=== PATIENT | male | born 1970 | race Caucasian/White ===

== ENCOUNTER 2021-01-14 14:40 | Emergency (ER) | payer MEDICAID ==
[2021-01-14 14:56] VITALS: BP 149/97
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
[2021-01-14] MEDS ORDERED: MAG HYDROX/AL HYDROX/SIMETH 30 ML UDC PO STA (15:23)
[2021-01-14 15:38] LABS: BASOPHILS % (AUTO) 0.5 %; EOSINOPHILS # (AUTO) 0.3 10^3/uL (0.0-0.7); EOSINOPHILS % (AUTO) 4.1 %; HCT - HEMATOCRIT 44.7 % (42.0-52.0); HGB - HEMOGLOBIN 14.9 g/dL (14.0-18.0); LYMPHOCYTES # (AUTO) 1.4 10^3/uL (1.5-3.5); LYMPHOCYTES % (AUTO) 22.1 %; MEAN CORPUSCULAR HGB CONC 33.3 g/dL (32.0-36.0); MEAN CORPUSCULAR VOLUME 93.1 fL (80.0-94.0); MEAN PLATELET VOLUME 8.2 fL (7.4-11.4); MONOCYTES # (AUTO) 0.6 10^3/uL (0.0-1.0); MONOCYTES % (AUTO) 8.9 %; NEUTROPHILS # (AUTO) 4.1 10^3/uL (1.5-6.6); NEUTROPHILS % (AUTO) 64.1 %; PLT - PLATELET COUNT 247 10^3/uL (130-450); RED CELL DISTRIBUTION WIDTH 13.7 % (12.0-15.0); WHITE BLOOD COUNT 6.4 x10^3/uL (4.8-10.8)
[2021-01-14 15:57] LABS: ACETAMINOPHEN < 10 ug/mL (10-30); ALBUMIN 4.2 g/dL (3.2-5.5); ALBUMIN/GLOBULIN RATIO 1.3 (1.0-2.2); ALKALINE PHOSPHATASE 45 IU/L (42-121); ALT ALANINE AMINOTRANSFERASE 22 IU/L (10-60); AST ASPARTATE AMINOTRANSFERASE 19 IU/L (10-42); BILIRUBIN,TOTAL 0.8 mg/dL (0.2-1.0); BUN - BLOOD UREA NITROGEN 12 mg/dL (6-20); CALCIUM 9.2 mg/dL (8.5-10.3); CARBON DIOXIDE - CO2 26 mmol/L (21-32); CHLORIDE 103 mmol/L (101-111); CREATININE 0.8 mg/dL (0.6-1.2); ETOH - ETHANOL < 5.0 mg/dL; GFR - MDRD 103 (>89); GLUCOSE 115 mg/dL (70-100); LIPASE 27 U/L (22-51); POTASSIUM 4.1 mmol/L (3.5-5.0); SALICYLATE < 6.0 mg/dL; SODIUM 137 mmol/L (135-145); TOTAL PROTEIN 7.5 g/dL (6.7-8.2)
[2021-01-14 16:06] LABS: MUDS CUTOFF CONCENTRATIONS CUTOFF CONC BELOW:
[2021-01-14 16:10] LABS: BILIRUBIN,URINE NEGATIVE (NEGATIVE); GLUCOSE, URINE (UA) NEGATIVE (NEGATIVE); KETONES,URINE (UA) NEGATIVE (NEGATIVE); LEUKOCYTE ESTERASE, URINE NEGATIVE (NEGATIVE); NITRITE,URINE NEGATIVE (NEGATIVE); OCCULT BLOOD,URINE NEGATIVE (NEGATIVE); PH,URINE 6.5 PH (5.0-7.5); PROTEIN,URINE NEGATIVE (NEGATIVE); UROBILINOGEN,URINE 0.2 (NORMAL) E.U./dL (NORMAL)
[2021-01-14 16:22] LABS: AMPHETAMINE SCREEN,URINE NEGATIVE (NEGATIVE); BARBITURATE SCREEN,UR NEGATIVE (NEGATIVE); BENZODIAZEPINES SCREEN, URINE NEGATIVE (NEGATIVE); CLARITY,URINE CLEAR (CLEAR); COCAINE SCREEN URINE NEGATIVE (NEGATIVE); METHADONE SCREEN, URINE NEGATIVE (NEGATIVE); METHAMPHETAMINES SCREEN, URINE NEGATIVE (NEGATIVE); OPIATE SCREEN, URINE NEGATIVE (NEGATIVE); OXYCODONE SCREEN, URINE NEGATIVE (NEGATIVE); PROPOXYPHENE SCREEN, URINE NEGATIVE (NEGATIVE); THC CANNABINOID SCREEN, URINE POSITIVE (NEGATIVE); TRICYCLIC ANTIDEPRESSANT,URINE NEGATIVE (NEGATIVE)
[2021-01-14 17:22] LABS: B. PARAPERTUSSIS- RESP PCR PAN NOT DETECTED; B. PERTUSSIS- RESP PCR PANEL NOT DETECTED; C. PNEUMONIAE- RESP PCR PANEL NOT DETECTED; CORONAVIRUS 229E-RESP PCR NOT DETECTED; CORONAVIRUS HKU1-RESP PCR NOT DETECTED; CORONAVIRUS NL63-RESP PCR NOT DETECTED; CORONAVIRUS OC43-RESP PCR NOT DETECTED; HUMAN METAPNEUMOVIRUS NOT DETECTED; INFLUENZA A- RESP PCR PANEL NOT DETECTED; INFLUENZA B - RESP PCR PANEL NOT DETECTED; M. PNEUMONIAE- RESP PCR PANEL NOT DETECTED; PARAINFLUENZA VIRUS 1 NOT DETECTED; PARAINFLUENZA VIRUS 2 NOT DETECTED; PARAINFLUENZA VIRUS 3 NOT DETECTED; PARAINFLUENZA VIRUS 4 NOT DETECTED; RHINOVIRUS/ENTEROVIRUS DETECTED; RSV- RESP PCR PANEL NOT DETECTED; SARS-CoV-2 -RESP PCR PANEL NOT DETECTED
== END 2021-01-14 17:05 | disposition home or self-care (01) ==
LOC: ED 14:40
DX: F22 Delusional disorders (principal); F15.90 Other stimulant use, unspecified, uncomplicated; Z20.822 Contact with and (suspected) exposure to COVID-19
CPT/HCPCS: 0202U; 36415; 80053; 80306; 80307; 80320; 80329; 81003; 82175; 83655; 83690; 83825; 84443; 85025; 99282; 99283; A9270; 81001; 87086

== ENCOUNTER 2021-07-24 02:27 | Emergency (ER) | payer MEDICAID ==
[2021-07-24] MEDS ORDERED: ASPIRIN 325 MG TABLET PO STA (02:49)
[2021-07-24 02:57] LABS: BASOPHILS % (AUTO) 0.5 %; EOSINOPHILS # (AUTO) 0.2 10^3/uL (0.0-0.7); EOSINOPHILS % (AUTO) 3.8 %; HCT - HEMATOCRIT 38.6 % (42.0-52.0); HGB - HEMOGLOBIN 12.6 g/dL (14.0-18.0); LYMPHOCYTES # (AUTO) 1.8 10^3/uL (1.5-3.5); LYMPHOCYTES % (AUTO) 31.4 %; MEAN CORPUSCULAR HEMOGLOBIN 30.6 pg (27.0-31.0); MEAN CORPUSCULAR HGB CONC 32.6 g/dL (32.0-36.0); MEAN CORPUSCULAR VOLUME 93.7 fL (80.0-94.0); MEAN PLATELET VOLUME 8.4 fL (7.4-11.4); MONOCYTES # (AUTO) 0.5 10^3/uL (0.0-1.0); MONOCYTES % (AUTO) 8.1 %; NEUTROPHILS # (AUTO) 3.2 10^3/uL (1.5-6.6); PLT - PLATELET COUNT 221 10^3/uL (130-450); RED BLOOD COUNT 4.12 10^6/uL (4.70-6.10); RED CELL DISTRIBUTION WIDTH 13.8 % (12.0-15.0); WHITE BLOOD COUNT 5.8 x10^3/uL (4.8-10.8)
--- NOTE | 2021-07-24 03:04 | ED Physician Documentation ---
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 denies soa, cough, cp with exertion, fever, leg swelling or back pain. currently pain is 1/10. Review of Systems Ten Systems: 10 systems reviewed and negative Constitutional: denies: Fever, Chills Cardiac: reports: Chest pain / pressure, Palpitations Respiratory: denies: Dyspnea GI: denies: Nausea PD PAST MEDICAL HISTORY - Past Medical History Cardiovascular: None Respiratory: None Neuro: None Endocrine/Autoimmune: None Psych: None (he denies history of bipolar nor schizoaffective disorder. ) - Past Surgical History Past Surgical History: Yes Ortho: Knee replacement, Other - Present Medications Home Medications: Ambulatory Orders Medication Instructions Recorded Confirmed OLANZapine [Zyprexa] 5 mg PO BID PRN #10 tablet 01/14/21 - Allergies Allergies/Adverse Reactions: Allergies Allergy/AdvReac Type Severity Reaction Status Date / Time No Known Drug Allergies Allergy Verified 07/24/21 02:46 - Social History Does the pt smoke?: No Smoking Status: Current every day smoker Does the pt drink ETOH?: No Does the pt have substance abuse?: Yes PD ED PE NORMAL - Vitals Vital signs reviewed: Yes - General General: Alert and oriented X 3, No acute distress, Well developed/nourished - HEENT HEENT: Atraumatic, PERRL, EOMI - Neck Neck: Supple, no meningeal sign - Cardiac Cardiac: RRR, No murmur - Respiratory Respiratory: No respiratory distress, Clear bilaterally - Abdomen Abdomen: Non tender, Non distended - Back Back: No CVA TTP - Derm Derm: Normal color, Warm and dry - Extremities Extremities: No deformity - Neuro Neuro: Alert and oriented X 3 - Psych Psych: Normal mood, Normal affect Results - Vitals Vitals: Vital Signs - 24 hr 07/24/21 07/24/21 07/24/21 02:35 02:49 05:20 Temperature 36.9 C 36.6 C Heart Rate 90 89 84 Respiratory 18 18 15 Rate Blood Pressure 127/89 H 127/89 H 146/93 H O2 Saturation 98 100 100 Oxygen O2 Source Room air - EKG (time done) 0235 Rate: Rate (enter#) (82) Rhythm: NSR [place]: Normal Intervals: Normal ND, Other (QRS 103) Ischemia: Other (JOSH in V1 and V2 without reciprocal changes. likely c/w LVH) 0331 Rate: Rate (enter#) (72) Rhythm: NSR [place]: Normal Intervals: Normal ND, Other (qrs 103) Ischemia: Other (persistent high voltage in anteroseptal precordials with some JOSH without reciprocal changes.) 0511 Rate: Rate (enter#) (70) Rhythm: NSR [place]: Normal Intervals: Normal ND, Other (qrs 105) Ischemia: Other (unchanged from prior two ekgs. precordial leads with high voltage R waves in anteroseptal leads and JOSH without reciprocal changes. ) - Labs Labs: Laboratory Tests 07/24/21 07/24/21 07/24/21 02:49 02:49 02:49 WBC 5.8 RBC 4.12 L Hgb 12.6 L Hct 38.6 L MCV 93.7 MCH 30.6 MCHC 32.6 RDW 13.8 Plt Count 221 MPV 8.4 Neut # (Auto) 3.2 Lymph # (Auto) 1.8 [place] # (Auto) 0.5 Eos # (Auto) 0.2 Baso # (Auto) 0.0 Absolute Nucleated RBC 0.00 Nucleated RBC % 0.0 Sodium 137 Potassium 3.4 L Chloride 101 Carbon Dioxide 26 Anion Gap 10.0 BUN 15 Creatinine 0.7 Estimated GFR (MDRD) 120 Glucose 121 H Calcium 9.3 Total Bilirubin 0.9 AST 24 ALT 21 Alkaline Phosphatase 43 Troponin I High Sens 20.2 H* Total Protein 7.4 Albumin 4.3 Globulin 3.1 Albumin/Globulin Ratio 1.4 Lipase 30 07/24/21 04:36 WBC RBC Hgb Hct MCV MCH MCHC RDW Plt Count MPV Neut # (Auto) Lymph # (Auto) [place] # (Auto) Eos # (Auto) Baso # (Auto) Absolute Nucleated RBC Nucleated RBC % Sodium Potassium Chloride Carbon Dioxide Anion Gap BUN Creatinine Estimated GFR (MDRD) Glucose Calcium Total Bilirubin AST ALT Alkaline Phosphatase Troponin I High Sens 22.6 H* Total Protein Albumin Globulin Albumin/Globulin Ratio Lipase PD MEDICAL DECISION MAKING - ED course ED course: 3am - d/w Dr. Castanon and had him review ekg. he says no clear ischemic changes/ no STEMI on EKG, likely LVH pattern, but we have no prior ekgs. need to check troponin, monitor. He recommends transfer for IR if clinical suspicion is high. Given patient is asymptomatic at present we will not activate labor arbitrator hearing office/STEMI for now, will continue to monitor and f/u labs. High sensitivity trop 20. patient still asymptomatic. aspirin administered. will check repeat trop, reevaluate. 3:30am- patient with 3/10 pain shooting down L arm. repeat ekg completed without clear JOSH/reciprocal changes. call placed to [place] [facility] for concern of possible ischemic changes on EKG. will obtain 2nd trop. d/w Dr. Castanon regarding 2nd ekg. he agrees there is JOSH in v1, v2, without reciprocal ST depression. does not meet criteria for stemi. 4am d/w Dr. Cross, [facility] who reviewed the two ekgs. high voltage and j point elevation in precordials. st changes in inferolateral leads are mild, unimpressive. low concern for ACS. reasonable plan to monitor, repeat troponin. 5am - patient asymptomatic in ED, with third EKG unchanged. repeat troponin stable. Shared decision made with patient to discharge home with strict return precautions. patient plans to f/u with pmd for referral to cardiology. Departure - Departure Disposition: 01 Home, Self Care Clinical Impression: Chest pain Condition: Good Instructions: ED Chest Pain Atypical Unkn Cause Follow-Up: Bassam Castanon MD [Physician No Access] - Comments: You were seen in the emergency department for chest pain. Your heart test of your heart was at the upper limit of normal range and the repeat test for your heart was unchanged. Your EKGs are not showing any acute changes. I discussed your care with our cardiologists commercial pest control representative and recommend you follow up with Dr. Castanon at or Dr. Cross at [facility] in [place]. You should also see your primary doctor this week. return to the emergency department immediately if you have new or worsening symptoms or other concerns.
[2021-07-24 03:16] LABS: ALBUMIN 4.3 g/dL (3.2-5.5); ALBUMIN/GLOBULIN RATIO 1.4 (1.0-2.2); BILIRUBIN,TOTAL 0.9 mg/dL (0.2-1.0); CALCIUM 9.3 mg/dL (8.5-10.3); CREATININE 0.7 mg/dL (0.6-1.2); POTASSIUM 3.4 mmol/L (3.5-5.0); TOTAL PROTEIN 7.4 g/dL (6.7-8.2)
[2021-07-24] MEDS ORDERED: ATORVASTATIN 40 MG TABLET PO STA (04:04)
[2021-07-24] MEDS ORDERED: ENOXAPARIN 80 MG/0.8 ML SYRINGE SUBQ STA (04:04)
[2021-07-24 05:21] VITALS: BP 146/93
--- NOTE | 2021-07-24 07:52 | XRAY Report ---
PROCEDURE: Chest 1 View X-Ray INDICATIONS: Chest Pain TECHNIQUE: One view of the chest was acquired. COMPARISON: None FINDINGS: Surgical changes and devices: Postsurgical changes of the lower cervical spine incompletely evaluated . Overlying EKG wires. Lungs and pleura: No pleural effusions or pneumothorax. Lungs are clear. Mediastinum: Mediastinal contours appear normal. Heart size is normal. Bones and chest wall: No suspicious bony lesions. Remote bilateral rib fractures. Age-appropriate d egenerative changes of the shoulders and spine. Overlying soft tissues appear unremarkable. IMPRESSION: No evidence of an acute cardiopulmonary abnormality. Agree with preliminary report. Reviewed by: Jean-Claude Cheatham DO on 07/24/2021 6:51 AM COLTEN Approved by: Jean-Claude Cheatham DO on 07/24/2021 6:51 AM COLTEN Station ID: [id number]
== END 2021-07-24 05:34 | disposition home or self-care (01) ==
LOC: ED 02:27
DX: R07.9 Chest pain, unspecified (principal); R94.31 Abnormal electrocardiogram [ECG] [EKG]; R79.89 Other specified abnormal findings of blood chemistry; M79.602 Pain in left arm; Z87.891 Personal history of nicotine dependence
CPT/HCPCS: 36415; 71045; 80053; 83690; 84484; 85025; 93005; 96372; 99284; A9270; J1650